=== PATIENT | male | born 1960 | race Caucasian/White ===

== ENCOUNTER 2019-12-25 09:24 | Emergency (ER) | payer BC, OTHER ==
--- NOTE | 2019-12-25 09:28 | PDOC ---
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 Pt states the wasp stung his nose, took benadryl yesterday morning and again last night. Pt states today with more swelling to his nose and under his eyes. Itching yesterday, but none today. pt states hx of a bee sting in the past to his L leg that caused a lot of swelling. Pt denies sob, difficulty breathing, lip, tongue, throat closing. No cough. No abd pain. No n/v/d. No other complaints. Pt ambulated into the ER with a steady gait. Pt with a sting site to the L lower nare with soft tissue swelling. Past History - Medical History Allergies/Adverse Reactions: Allergies Allergy/AdvReac Type Severity Reaction Status Date / Time No Known Allergies Allergy Unverified 12/25/19 09:27 Home Medications: Ambulatory Orders Epinephrine [Epipen] 0.3 mg IJ ONCE PRN #1 auto.injct 12/25/19 Famotidine [Pepcid] 20 mg PO DAILY #7 tablet 12/25/19 Prednisone [Prednisone 50 MG TABLETS] 50 mg PO DAILY #3 tablet 12/25/19 Review of Systems - Review of Systems Able to Perform ROS?: Yes Is the patient limited Icelandic proficient: No Constitutional: No: Chills, Fever HEENTM: Yes: Nose Pain (nose swelling at the sting site). No: Eye Pain, Blurred Vision, Double Vision, Nose Congestion, Throat Swelling, Mouth Pain, Difficulty Swallowing, Mouth Swelling Respiratory: No: Cough, Shortness of Breath, Stridor, Wheezing Cardiac (ROS): No: Chest Pain, Lightheadedness, Palpitations ABD/GI: No: Diarrhea, Nausea, Vomiting, Abdominal cramping : No: Burning Musculoskeletal: No: Back Pain Integumentary: Yes: Other (soft tissue swelling to nose and under left eye) Neurological: Yes: Paresthesia (at the site of the bite). No: Headache, Numbness, Tingling, Tremors, Weakness All Other Systems: Reviewed and Negative *Physical Exam - Vital Signs 12/25/19 09:42 Selected Entries 12/25/19 09:26 Temperature 98.3 F Pulse Rate 81 Respiratory 16 Rate Blood Pressure 151/83 Blood Pressure 105 Mean O2 Sat by Pulse 99 Oximetry (%) Weight 74.843 kg - Physical Exam General Appearance: Yes: Nourished, Appropriately Dressed. No: Apparent Dis tress HEENT: positive: EOMI, KATINA, Normal Voice, Pharynx Normal, Other (soft tissue swelling under L eye and across the nose, sting site to the L nare). negative: Pharyngeal Erythema, Tonsillar Erythema, Nasal Congestion Neck: positive: Supple. negative: Stridor Respiratory/Chest: positive: Lungs Clear, Normal Breath Sounds. negative: Respiratory Distress Cardiovascular: positive: Regular Rhythm, Regular Rate, S1, S2. negative: Edema Gastrointestinal/Abdominal: positive: Soft. negative: Guarding, Rebound, Tenderness Musculoskeletal: positive: Normal Inspection Extremity: positive: Normal Inspection, Normal Range of Motion, Other (ambulatory with a steady gait). negative: Calf Tenderness Integumentary: positive: Dry, Warm, Swelling (under L eye and across the nose). negative: Erythema, Ecchymosis Neurologic: positive: Fully Oriented, Alert, Normal Mood/Affect, Normal Response, Motor Strength 5/5 Medical Decision Making - Medical Decision Making 12/25/19 09:44 a/p: 59yo male with wasp sting to the L nare with local reaction -will give steroids, benadryl, pepcid -will dc with steroids -ice to the area -needs allergy follow up -local reaction, no signs of anaphylaxis -stable for dc to home after meds with local care and allergy testing -answered all questions Discharge - Discharge Information Problems reviewed: Yes Clinical Impression/Diagnosis: Wasp sting Condition: Stable - Admission No - Additional Discharge Information Prescriptions: Epinephrine [Epipen] 0.3 mg IJ ONCE PRN #1 auto.injct PRN Reason: Allergies Famotidine [Pepcid] 20 mg PO DAILY #7 tablet Prednisone [Prednisone 50 MG TABLETS] 50 mg PO DAILY #3 tablet - Follow up/Referral Referrals: Pietro Stallworth MD [Staff Physician] - - Patient Discharge Instructions Patient Printed Discharge Instructions: How to Care for an Insect Bite or Sting, DI for Insect Bites and Stings Additional Instructions: Please apply ice 20 min on and 20 min off. Please take the epipen to work with you - if you develop an allergic reaction where your lips or tongue swell or if you feel your throat is closing and you cannot breath please use the epipen and dial 911 and go to the closest emergency room. Please call the selling manager and schedule an appointment for allergy testing. Please take all medications as prescribed. You are due for the next dose of prednisone and pepcid tomorrow. You can use benadryl as directed and as needed for itching and swelling. Please return to the ER with any further concerns or complaints. Please also follow up with your PMD. - Post Discharge Activity
[2019-12-25 09:31] VITALS: BP 151/83; PULSE 81; TEMP 98.3; BMI 27.4
[2019-12-25] MEDS ORDERED: diphenhydrAMINE HCL 25 MG CAPSULE (FP) PO ONE (09:34)
[2019-12-25] MEDS ORDERED: FAMOTIDINE 20 MG TABLET PO ONE (09:35)
[2019-12-25] MEDS ORDERED: predniSONE 10 MG TABLET (UD) ONE (09:38)
[2019-12-25] MEDS ORDERED: diphenhydrAMINE HCL 50 MG CAPSULE ONE (09:38)
[2019-12-25] MEDS ORDERED: predniSONE 20 MG TABLET (UD) ONE (09:39)
[2019-12-25] MEDS ORDERED: FAMOTIDINE 20 MG TABLET ONE (09:39)
[2019-12-25] MEDS ORDERED: predniSONE 20 MG TABLET (UD) PO SCH (10:00)
== END 2019-12-25 09:56 | disposition home or self-care (01) ==
LOC: FER 09:24
DX: T63.461A Toxic effect of venom of wasps, accidental (unintentional), initial encounter (principal)
CPT/HCPCS: 99284-25